=== PATIENT | male | born 1965 | race Two or more races ===

== ENCOUNTER 2022-02-17 10:38 | Emergency (ER) | payer BC ==
[~2022-02-17] VITALS: Ht 177.8 cm; Wt 78.5 kg
--- NOTE | 2022-02-17 10:40 | NUR ---
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
[2022-02-17 10:44] VITALS: BP 124/73
--- NOTE | 2022-02-17 10:57 | NUR ---
DR VELASCO AT BEDSIDE FOR EVAL
--- NOTE | 2022-02-17 10:58 | NUR ---
POLICE STENOGRAPHER AT BEDSIDE FOR XRAY
--- NOTE | 2022-02-17 12:15 | NUR ---
Patient discharged to home in stable condition. Written and verbal after care instructions given. Patient verbalizes understanding of instruction.
--- NOTE | 2022-02-17 12:15 | NUR ---
Sling Applied by DOUGLAS Winchester to affected area. After Care instructions given questions answered Patient discharged to home in stable condition. Written and verbal after care instructions given. Patient verbalizes understanding of instruction.
== END 2022-02-17 12:16 | disposition home or self-care (01) ==
LOC: ER 10:46
DX: M25.511 Pain in right shoulder (principal); W18.30XA Fall on same level, unspecified, initial encounter; Y93.89 Activity, other specified; Y92.89 Other specified places as the place of occurrence of the external cause; Y99.8 Other external cause status
CPT/HCPCS: 73030-TC